=== PATIENT | female | born 1955 | race Caucasian/White ===

== ENCOUNTER 2018-01-09 13:52 | Inpatient (IN) | payer MEDICARE ==
[~2018-01-09] VITALS: Ht 167.6 cm; Wt 77.1 kg
[2018-01-09] MEDS ORDERED: LORAZEPAM 0.5 MG TABLET PO PRN (16:00)
[2018-01-09] MEDS ORDERED: TEMAZEPAM 7.5 MG CAPSULE PO PRN (16:00)
[2018-01-09] MEDS ORDERED: ACETAMINOPHEN 325 MG TABLET PO PRN (16:00)
[2018-01-09] MEDS ORDERED: MAGNESIUM HYDROXIDE 30 ML UDC PO PRN (16:00)
[2018-01-09] MEDS ORDERED: MAG HYDROX/AL HYDROX/SIMETH 30 ML UDC PO PRN (16:00)
--- NOTE | 2018-01-09 17:39 | NUR ---
RN-CO: CALLED RESPONSIBLE CONSTITUTION PARTY , KEPT ON RINGING NOBODY WAS ANSWERING.
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
[2018-01-10] MEDS: risperiDONE 1 MG TABLET PO SCH ×2 (12:00→16:51)
--- NOTE | 2018-01-10 12:48 | NUR ---
RN NOTES PATIENT REFUSED RISPERDAL DESPITE OF EXPLANATION OF RISK AND BENEFITS. OFFERED 3 X, PATIENT REFUSED. DR. ABURTO AWARE.
[2018-01-10 16:13] VITALS: BP 123/63
[2018-01-10] MEDS: BENZTROPINE MESYLATE (1 MG) 1 MG TABLET PO SCH (16:51)
--- NOTE | 2018-01-10 17:16 | NUR ---
RN NOTES PATIENT REFUSED MEDICATIONS DESPITE OF EXPLANATION OF RISK AND BENEFITS. OFFERED 3 X STRONGLY REFUSED.
[2018-01-10 19:46] VITALS: BP 127/75
[2018-01-10] MEDS: DIVALPROEX SODIUM 250 MG TABLET.DR PO SCH (21:00)
--- NOTE | 2018-01-11 00:48 | NUR ---
GPS RN NOTES: PATIENT AWAKE, AT THE HALLWAY. SHE TRIED TO PULL TO SIGN ON THE WALL WITH THE WRITING "GUEST A, GUEST B"- WHERE THE CONTRABAND LOCKERS ARE LOCATED. RETIREMENT MANAGER, TOLD THE PATIENT, "YOU CANNOT TAKE THAT OFF THE WALL BECAUSE IT IS SEALED TO THE WALL" .PATIENT YELLED AND SCREAMED AT THE RETIREMENT MANAGER RIGHT AWAY, SAYING "WHAT? YOU ARE ASSUMING. A-S-S- YOU AND ME!". TRIED TO REDIRECT THE PATIENT MUCH POSSIBLE. 1:1 SITTER TRIED TO WALK WITH HER IN THE HALLWAY TO CALM HER DOWN. WILL CONTINUE TO MONITOR PATIENT FOR MOOD, SAFETY AND BEHAVIOR.
[2018-01-11 08:00] VITALS: BP 138/85
[2018-01-11] MEDS: BENZTROPINE MESYLATE (1 MG) 1 MG TABLET PO SCH ×2 (08:44→16:53)
[2018-01-11] MEDS: risperiDONE 1 MG TABLET PO SCH ×2 (08:44→16:53)
[2018-01-11] MEDS: DIVALPROEX SODIUM 250 MG TABLET.DR PO SCH ×2 (08:44→21:00)
--- NOTE | 2018-01-11 09:00 | NUR ---
GPS/RN PATIENT ADAMANTLY REFUSED ALL MORNING MEDS X 3, STATED" I'M NOT TAKING YOUR POISONOUS MEDS" EXPLAINED RISKS AND BENEFITS, WILL CONTINUE TO ENCOURAGE TO COMPLY WITH MD REGIMEN.
[2018-01-11 16:00] VITALS: BP 138/95
--- NOTE | 2018-01-11 18:56 | NUR ---
GPS/RN PATIENT ADAMANTLY REFUSED ALL MEDICATIONS THROUGHOUT SHIFT, EXPLAINED RISKS AND BENEFITS, WILL CONTINUE TO ENCOURAGE TO COMPLY WITH MD REGIMEN.
[2018-01-12 08:00] VITALS: BP 148/98
[2018-01-12] MEDS: risperiDONE 1 MG TABLET PO SCH ×2 (08:27→16:50)
[2018-01-12] MEDS: DIVALPROEX SODIUM 250 MG TABLET.DR PO SCH ×2 (08:27→21:00)
[2018-01-12] MEDS: BENZTROPINE MESYLATE (1 MG) 1 MG TABLET PO SCH ×2 (08:27→16:50)
--- NOTE | 2018-01-12 09:00 | NUR ---
GPS/RN PATIENT ADAMANTLY REFUSED ALL MORNING MEDS X 3, EXPLAINED RISKS AND BENEFITS, WILL CONTINUE TO ENCOURAGE TO COMPLY WITH MD REGIMEN.
--- NOTE | 2018-01-12 15:38 | NUR ---
GPS/RN PATIENT REFUSED MRSA SWAB X 3, EXPLAINED RISKS AND BENEFITS, WILL CONTINUE TO ENCOURAGE TO COMPLY WITH MD REGIMEN.
--- NOTE | 2018-01-12 15:45 | NUR ---
Initial Discharge Plan: Pts address on the face sheet is [address] [place] [address]; .Pt reported [address] [facility] [address] as her home address.Pt reported that she would like to discharge back home once she is stable. SW contacted Merlene Zaidi, (emergency contact) however was unable to speak to anyone; a message was left. SW will follow up to ensure pt is safely and adequately discharged.
[2018-01-12 16:00] VITALS: BP 141/88
--- NOTE | 2018-01-12 17:45 | NUR ---
GPS/RN PATIENT ADAMANTLY REFUSED ALL MEDICATIONS THROUGHOUT SHIFT, EXPLAINED RISKS AND BENEFITS, WILL CONTINUE TO ENCOURAGE TO COMPLY WITH MD REGIMEN.
[2018-01-12 20:02] VITALS: BP 132/74
[2018-01-13] MEDS: risperiDONE 1 MG TABLET PO SCH ×3 (09:00→17:00)
[2018-01-13] MEDS: BENZTROPINE MESYLATE (1 MG) 1 MG TABLET PO SCH ×3 (09:00→17:00)
[2018-01-13] MEDS: DIVALPROEX SODIUM 250 MG TABLET.DR PO SCH ×2 (09:00→21:00)
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
[2018-01-13] MEDS ORDERED: OLANZAPINE 5 MG TABLET PO SCH (10:30)
[2018-01-13] MEDS ORDERED: OLANZAPINE 10 MG VIAL IM PRN ×3 (11:00→17:00)
--- NOTE | 2018-01-13 11:13 | NUR ---
GPS/RN-NOTES RECEIVED VERBAL ORDER FROM DR. ABURTO OF GIVE ZYPREXA 2.5MG IM FOR EVERY REFUSAL OF ZYPREXA 1MG P.O .NOTED AND CARRIED OUT. PATIENT IS JORDAN. Addendum: 01/13/18 at 1139 by MICHA ALSTON RN CORRECTIONS ON MY ABOVE NOTES GIVE ZYPREXA 2.5MG IM FOR EVERY REFUSAL OF RISPERDAL 1MG P.O.
--- NOTE | 2018-01-13 11:55 | NUR ---
GPS/RN-NOTES DID F/U AND VERIFY THE BACK UP ORDERS ORDERS FOR RIESE WITH DR. ABURTO AND STATED" LONG IT WAS WRITTEN IN THE APPLICATIONS THAT MOOD STABILIZERS IS INCLUDED ITS OK TO GIVE THE BACK UP IM SHOT ORDERED.
--- NOTE | 2018-01-13 12:05 | NUR ---
GPS/RN-NOTES OFFERED PATIENT HER RISPERDAL 1MG P.O AND DEPAKOTE 250MG P.O FOR THE SECOND TIME. PATIENT ALREADY RIESE WITH ORDER OF EACH REFUSAL OF THESE MEDICATION HAD AN ORDER OF ZYPREXA 2.5MG IM . A TOTAL OF ZYPREXA 5MG IM GIVEN ORDERED. IM MEDS. GIVEN AT RIGHT BUTTOCK, PATIENT TOLERATED WELL. Addendum: 01/13/18 at 1603 by MICHA ALSTON RN IN ADDITION TO MY ABOVE NOTES PATIENT STILL REFUSED ALL P.O MEDICATIONS.
--- NOTE | 2018-01-13 15:47 | NUR ---
JOSEPH received a voicemail message from pts father Edmund Zaidi on this date, requesting for a call back. SW called pts father back however was unable to reach him; another message was left. JOSEPH will follow up for discharge planning purposes.
[2018-01-13 16:00] VITALS: BP 145/74
--- NOTE | 2018-01-13 16:48 | NUR ---
GPS/RN-NOTES RECEIVED T.O FROM DR. ABURTO TO D/C ZYPREXA 2.5MG IM FOR EVERY REFUSAL OF DEPAKOTE P.O AND INCREASED ZYPREXA TO 5MG IM FOR EVERY REFUSAL OF RISPERDAL 1MG P.O.NOTED AND CARRIED OUT.
[2018-01-13] MEDS: OLANZAPINE 10 MG VIAL IM PRN ×2 (17:11→21:55)
--- NOTE | 2018-01-13 17:25 | NUR ---
GPS/RN-NOTES PATIENT REFUSED RISPERDAL 1MG P.O., ZYPREXA 5MG IM GIVEN ORDERED. PATIENT VOLUNTARY OFFERED HER LEFT BUTTOCK FOR THE SHOT.
--- NOTE | 2018-01-13 21:00 | NUR ---
PT REFUSED DEPAKOTE 250 MG PO X3, RISK AND BENEFITS EXPLAINED PT STILL REFUSED.
--- NOTE | 2018-01-13 21:55 | NUR ---
GPS RN-NOTES ZYPREXA 5MG IM GIVEN ORDERED, WITNESSED BY KIRSTIE WHITE. PATIENT VOLUNTARILY OFFERED HER LEFT BUTTOCK FOR THE SHOT, WITNESSED BY KIRSTIE WHITE. PT ALSO REFUSED VITAL SIGNS CHECH, RISK AND BENEFITS EXPLAINED, PT STILL REFUSED X 3. WILL CONT TO MONITOR.
--- NOTE | 2018-01-13 23:30 | NUR ---
PT WALKED TO THE STATION, AND VERBALIZED " THANK YOU FOR THE SHOT".
[2018-01-14 08:34] VITALS: BP 133/69
[2018-01-14] MEDS: risperiDONE 1 MG TABLET PO SCH ×2 (09:00→17:00)
[2018-01-14] MEDS: DIVALPROEX SODIUM 250 MG TABLET.DR PO SCH ×2 (09:00→21:00)
[2018-01-14] MEDS: BENZTROPINE MESYLATE (1 MG) 1 MG TABLET PO SCH ×2 (09:00→17:00)
--- NOTE | 2018-01-14 09:45 | NUR ---
GPS/RN-NOTES PATIENT REFUSED ALL 0900AM MEDICATIONS INCLUDING RISPERDAL 1MG P.O. STATED" I RATHER TAKE THE SHOT THAN THE PILLS,BECAUSE I DON'T TRUST THE PILL".ZYPREXA 5MG IM GIVEN ORDERED.GIVEN AT HER RIGHT BUTTOCK AREA,PATIENT TOLERATED WELL.
[2018-01-14] MEDS: OLANZAPINE 10 MG VIAL IM PRN ×2 (09:46→17:07)
--- NOTE | 2018-01-14 17:16 | NUR ---
GPS/RN-NOTES PATIENT REFUSED [id number] MEDICATIONS INCLUDING RISPERDAL 1MG P.O. STATED" CAN I HAVE THE SHOT NOW ITS DUE".ZYPREXA 5MG IM GIVEN ORDERED.GIVEN AT HER LEFT BUTTOCK AREA,PATIENT TOLERATED WELL.
--- NOTE | 2018-01-14 21:03 | NUR ---
GPS/HEAD GRINDER NOTES: PT. REFUSED HS MED. OFFERED 3X. EXPLAINED RISK AND BENEFITS. PT. STILL REFUSED. WILL CONTINUE TO MONITOR.
[2018-01-15] MEDS: risperiDONE 1 MG TABLET PO SCH ×3 (09:00→17:06)
[2018-01-15] MEDS: DIVALPROEX SODIUM 250 MG TABLET.DR PO SCH ×3 (09:00→20:55)
[2018-01-15] MEDS: BENZTROPINE MESYLATE (1 MG) 1 MG TABLET PO SCH ×3 (09:00→17:06)
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
--- NOTE | 2018-01-15 10:30 | NUR ---
GPS/RN-NOTES PATIENT IN THE DAY ROOM PARTICIPATING IN THE ACTIVITY GROUP,CALM,NO ACUTE DISTRESS NOTED. ALL NEEDS ATTENDED AND ANTICIPATED. WILL CONT. ON 1:1 MONITORING FOR SAFETY AND BEHAVIOR.
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
--- NOTE | 2018-01-15 16:56 | NUR ---
JOSEPH received a call from Sara [facility] Liason from [facility] informing about pts long history of psychiatric hospitalizations. Per Sara, pts case would be discussed with her tile layer supervisor Latosha in order to develop the best appropriate plan to continue to support pt after discharge; including a possible hospital to hospital transfer. Per Sara, she would call SW back with an update.
--- NOTE | 2018-01-15 20:56 | NUR ---
GPS RN NOTE PATIENT REFUSED DEPAKOTE 375MG, EXPLAINED THE RISK AND BENEFIT X 3 ATTEMPTS BUT PATIENT STILL REFUSED. WILL CONTINUE TO MONITOR [id number] FOR SAFETY
[2018-01-16] MEDS: risperiDONE 1 MG TABLET PO SCH ×2 (08:22→17:12)
[2018-01-16] MEDS: DIVALPROEX SODIUM 250 MG TABLET.DR PO SCH ×2 (08:24→21:00)
[2018-01-16] MEDS: BENZTROPINE MESYLATE (1 MG) 1 MG TABLET PO SCH ×2 (08:24→17:00)
[2018-01-16] MEDS ORDERED: OLANZAPINE 5 MG/TAB.RAPDIS PO PRN (11:00)
[2018-01-16 16:25] VITALS: BP 131/68
--- NOTE | 2018-01-17 05:42 | NUR ---
Pt has been refusing her meds, quite paranoid, hyperverbal, & delusional.
[2018-01-17 08:07] VITALS: BP 143/79
[2018-01-17] MEDS: BENZTROPINE MESYLATE (1 MG) 1 MG TABLET PO SCH ×2 (09:00→17:00)
[2018-01-17] MEDS ORDERED: DIVALPROEX SODIUM 125 MG TABLET.DR PO SCH (09:22)
[2018-01-17] MEDS: risperiDONE 1 MG TABLET PO SCH ×3 (10:01→19:32)
[2018-01-17] MEDS ORDERED: risperiDONE 1 MG TABLET PO ONE (11:00)
[2018-01-17 16:09] VITALS: BP 140/75
--- NOTE | 2018-01-17 18:31 | NUR ---
rn notes patient refused 1700 medication as prescribed. Patient state "Let me sleep naturally, i do not need medication". continued monitoring.
--- NOTE | 2018-01-18 06:29 | NUR ---
RN GPS NOTES PT. REFUES VITAL SIGNS FOR CONTRACT LAW SPECIALIST , ENCOURAGED AND EXPLAINED RISKS AND BENEFITS STILL REFUSED, WILL CONTINUE TO MONITOR
[2018-01-18] MEDS: BENZTROPINE MESYLATE (1 MG) 1 MG TABLET PO SCH ×2 (09:05→16:30)
[2018-01-18] MEDS: risperiDONE 1 MG TABLET PO SCH ×2 (09:07→16:24)
--- NOTE | 2018-01-18 17:01 | NUR ---
JOSEPH contacted [facility] Liason from [facility] to follow up on pts aftercare plan. JOSEPH was unable to speak to [facility] however a detailed message was left requesting a call back.
[2018-01-19] MEDS: risperiDONE 1 MG TABLET PO SCH ×2 (08:43→17:32)
[2018-01-19] MEDS: BENZTROPINE MESYLATE (1 MG) 1 MG TABLET PO SCH ×2 (08:46→17:00)
--- NOTE | 2018-01-19 08:46 | NUR ---
[id number]: PT REFUSED COGENTIN 0.5 MG PO. PT STATED, " I DON'T HAVE AN SYMPTOMS AND I DON'T WANT TO TAKE COGENTIN."
--- NOTE | 2018-01-19 17:03 | NUR ---
JOSEPH contacted [facility] Liaison from [facility] to follow up on pts aftercare plan however was unable to speak to her; a message was left asking for a callback.
--- NOTE | 2018-01-19 17:05 | NUR ---
Jt was provided with mental health resources by pts father, Edmund Richeyzier (i.e. JT Maravilla from [employer] and JT Nguyen from [employer]) fro discharge planning purposes. JT left a detailed message for both, requesting a callback on this date.
--- NOTE | 2018-01-19 17:33 | NUR ---
[id number]: PT REFUSED COGENTIN 0.5 MG PO. PT STATED, " I DON'T HAVE AN SYMPTOMS AND I DON'T WANT TO TAKE COGENTIN."
--- NOTE | 2018-01-19 20:48 | NUR ---
RN GPS NOTES PT. REFUES VITAL SIGNS FOR VOCATIONAL PSYCHOLOGIST , ENCOURAGED AND EXPLAINED RISKS AND BENEFITS STILL REFUSED, WILL CONTINUE TO MONITOR
--- NOTE | 2018-01-20 07:30 | NUR ---
RN GPS NOTES PT AWAKE, ALERT, VERBALLY RESPONSIVE, DENIES PAIN, CALM AND COOPERATIVE, NEEDS ATTENDED.
[2018-01-20 08:00] VITALS: BP 161/97
[2018-01-20] MEDS: risperiDONE 1 MG TABLET PO SCH ×2 (08:51→16:16)
[2018-01-20] MEDS: BENZTROPINE MESYLATE (1 MG) 1 MG TABLET PO SCH ×2 (09:00→17:00)
--- NOTE | 2018-01-20 12:42 | NUR ---
RN GPS NOTES PT SEEN BY DR. CRISELDA MD INFORMED OF PT'S EPISODE OF REFUSING MEDICATIONS.
--- NOTE | 2018-01-20 18:25 | NUR ---
RN GPS NOTES PT AT THE ACTIVITY ROOM WATCHING TV, INTERACTING WITH OTHER PATIENTS, CALM AND COOPERATIVE, ATE DINNER, NEEDS ATTENDED.
--- NOTE | 2018-01-20 18:28 | NUR ---
RN GPS NOTES PT REFUSED BLOOD PRESSURE CHECKS, INFORMED RISKS AND BENEFITS, STILL REFUSED, NO COMPLAINT OF PAIN OR ANY DISCOMFORT, NEEDS ATTENDED.
--- NOTE | 2018-01-21 05:58 | NUR ---
RN GPS NOTES PT. REFUES VITAL SIGNS FOR JOB HAND , ENCOURAGED AND EXPLAINED RISKS AND BENEFITS STILL REFUSED, WILL CONTINUE TO MONITOR.
[2018-01-21] MEDS: risperiDONE 1 MG TABLET PO SCH ×2 (08:53→16:23)
[2018-01-21] MEDS: BENZTROPINE MESYLATE (1 MG) 1 MG TABLET PO SCH ×2 (08:53→16:23)
--- NOTE | 2018-01-21 14:01 | NUR ---
DR. ABURTO ORDERED TO D/C 1:1.
[2018-01-22 07:34] VITALS: BP 106/56
[2018-01-22] MEDS: BENZTROPINE MESYLATE (1 MG) 1 MG TABLET PO SCH ×3 (09:00→17:00)
[2018-01-22] MEDS: risperiDONE 1 MG TABLET PO SCH ×2 (09:44→17:38)
--- NOTE | 2018-01-22 10:19 | NUR ---
PT. SELECTIVE WITH MEDS. REFUSED THE COGENTIN.
--- NOTE | 2018-01-22 17:40 | NUR ---
GPS/RN PT OFFERED ON NUMEROUS OCCASIONS THROUGHOUT THE DAY TO WEAR THE SAFETY SOCKS BUT PT REFUSED AND WALKS BAREFOOTED. REFUSED CHERYL RAMSEY TODAY.
[2018-01-23] MEDS: BENZTROPINE MESYLATE (1 MG) 1 MG TABLET PO SCH ×2 (09:00→17:00)
[2018-01-23] MEDS: risperiDONE 1 MG TABLET PO SCH ×2 (09:00→17:11)
[2018-01-24] MEDS: risperiDONE 1 MG TABLET PO SCH ×2 (08:22→16:14)
[2018-01-24] MEDS: BENZTROPINE MESYLATE (1 MG) 1 MG TABLET PO SCH ×2 (08:29→16:14)
[2018-01-24 16:15] VITALS: BP 129/64
[2018-01-24 20:03] VITALS: BP 128/92
[2018-01-25] MEDS: BENZTROPINE MESYLATE (1 MG) 1 MG TABLET PO SCH (08:45)
[2018-01-25] MEDS: risperiDONE 1 MG TABLET PO SCH (09:07)
--- NOTE | 2018-01-25 14:07 | NUR ---
JOSEPH faxed updated clinical to Sukhjinder Bhardwaj fax on this date per request.
--- NOTE | 2018-01-25 14:09 | NUR ---
Discharge Plan: Patient will discharge to [facility], [address] [facility] [address]; via ambulance at 1:00pm (trip # [id number]). Pt has been notified and is agreement. Pt does not want any family and or friends notified of her discharge plans. Pt will be followed by Sandwich And Drink Cart Operator, Dr. Boggs, [address] [place] [address]; and Psychiatrist, Dr. Keyes, [address] [place]. [phone]; at the facility.
--- NOTE | 2018-01-25 14:15 | NUR ---
[id number]: PT IS 63 YEARS OLD FEMALE DISCHARGE TO [address] [facility]. [address] IN STABLE CONDITION. PT IS ALERT AND ORIENTED X2, WITH PERIODS OF CONFUSION AND FORGETFULNESS. COMPLIANT WITH MEDICATIONS, COOPERATIVE WITH TREATMENT PLANS. PT DENIES SI/HI AND INSTRUCTED TO GO TO THE CLOSEST ER DEVELOP SI/HI. BEHAVIOR IMPROVED, PSYCHIATRIC TX PLANS MET, MEDICAL TX PLANS DEFERRED FOR CONTINUAL MONITORING. EDUCATED PT ABOUT AFTER CARE PLAN AND COPY PROVIDED. RETURNED PERSONAL BELONGINGS TO PT. MEDICATIONS RECONCILED WITH DR. ABURTO AND TWILA CULLEN. REPORT GIVEN TO DEBBIE GONSALVES AND KEI THACKER FOR CONTINUITY OF CARE. PT SIGNED DISCHARGE PAPERWORK. PT REFUSED SKIN ASSESSMENT. PT LEFT VIA AMBULANCE.
== END 2018-01-25 14:15 | DRG 885 ==
LOC: GPS 15:25
PROVIDERS: ADMIT Psychiatry & Neurology Psychosomatic Medicine; ATTEND Nurse Practitioner Acute Care
DX: F25.0 Schizoaffective disorder, bipolar type (principal); F30.9 Manic episode, unspecified; D50.9 Iron deficiency anemia, unspecified; Z91.19 Patient's noncompliance with other medical treatment and regimen
CPT/HCPCS: J3490